=== PATIENT | male | born 1925 | race Caucasian/White ===

== ENCOUNTER → 2016-12-21 | Outpatient (CLI) | payer OTHER, BC ==
[~2016-12-21] VITALS: Ht 177.8 cm; Wt 89.5 kg
[~2016-12-21] MED LIST: ACETAMINOPHEN325 M1 PO; APAP500 PO; APAP650 PO; ASPIRIN81 M2 PO; CRESTOR20 MG PO; FISH OIL 1,2001 EAC4 PO; HYDROCODON-ACE1 EAC7 PO; IBUPROFEN 200200 M1 PO; LISINOPRIL10 MG PO; MULTIVITAMINS1 EAC7 PO; NEURONTIN 300300 M1 PO; NEURONTIN 300M300 M2 PO; NORVASC5 MG PO; PERCOCET 5-3251 EACH PO; PREDNISONE 10 M10 M1 PO; VITAMIN D1000 UNI1 PO; ZESTORETIC 20-1 EAC3 PO
--- NOTE | ~2016-12-21 | HPC ---
[facility] [place] [place] [address] PAIN MANAGEMENT CONSULTATION Name: VU ROJAS Brody Room #: REG JACKIE GrigsbyJoel#: [id number] Admission: 12/21/16 Attend Phys: Lauro Hammonds DO Discharge: Date of : 10/14/[birth year] Report #: [id number] THIS REPORT FOR: //name// CC: Lauro Love MD DATE OF SERVICE: 12/21/2016 REFERRING PHYSICIAN: Teresa Love MD CHIEF COMPLAINT: Low back pain, bilateral upper buttock and posterolateral thigh pain. HISTORY OF PRESENT ILLNESS: As you know, the patient is an 89-year-old male, returning today in followup visit reporting pain of level of 5/10. States the pain begins in the low back into his bilateral buttock and posterolateral thigh. The patient denies injury or trauma that may have led to recurrence of symptoms. He states pain is exacerbated with walking and standing for any length of time, improves with resting and relaxation. As you are aware, the patient has undergone epidural injections in the past, the most recent was a November 23, 2016. At that visit, the patient reported a good efficacy with the epidural injection, noticing 90% improvement in overall pain until just recently. He returns today in followup visit to undergo the next in a series of epidural injections. ALLERGIES: LISINOPRIL. CURRENT MEDICATIONS: Acetaminophen, amlodipine, multivitamin, aspirin. SOCIAL HISTORY: The patient denies tobacco, alcohol or IV or illicit drug use. He is retired, retired years ago, unaccompanied today. PHYSICAL EXAMINATION: VITAL SIGNS: Blood pressure 139/83, pulse 93, respiratory rate 16, unlabored. The patient is 97% on room air. Height 5 feet 10 inches tall, weight 197.4 pounds, BMI calculated 28.3. GENERAL: Well-developed, well-nourished, well-hydrated 89-year-old male appearing stated age, placing current pain score at approximately 5/10. HEENT: Normocephalic, atraumatic. Pupils equal, round, reactive to light. Extraocular muscles are intact. Sclerae nonicteric without injection. NEUROLOGIC: Cranial nerves 2-12 grossly intact. EXTREMITIES: Show no clubbing, no cyanosis, no edema. MUSCULOSKELETAL: Seated straight leg raising negative. Supine straight leg raising is positive. Fabere's test negative. Modified Gaenslen's positive for axial low back pain. There is some palpatory tenderness over the bilateral SI [facility] [address] [place] [address] PAIN MANAGEMENT CONSULTATION Name: VU ROJAS Room #: REG [facility]#: [id number] Admission: 12/21/16 Attend Phys: Lauro Hammonds DO Discharge: Date of : 10/14/[birth year] Report #: [id number] joints today. Deep palpation of the area causes some intensification symptoms. ASSESSMENT: 1. Refer chronic lumbar radiculopathy. 2. Spinal stenosis of lumbar spine. 3. Displacement of lumbar intervertebral disk with radiculopathy. 4. Lumbosacral spondylosis with radiculopathy. 5. Lumbar degeneration. 6. Chronic intractable pain. PLAN: 1. The patient returns today in followup visit reporting pain score 5/10. It appears the patient has been suffering from recurrent lumbar radicular symptoms secondary to his progressively worsening spinal stenosis. We have discussed with the patient the treatment options available. Given the fact that he received 90% improvement in overall pain with previous injection, I would recommend he undergo the next in a series of epidural injections in hopes of improving pain further. The patient was amenable and does wish to undergo the procedure. He was advised the risks and benefits, states he understood, signed a consent and wished to proceed. 2. No medication changes were made at today's visit. The patient to continue current medical therapy as previously prescribed. 3. The patient to return to our clinic on an as needed basis for possible next in a series of epidural injections and discuss other treatment options for lumbar radicular pain secondary to spinal stenosis. PROCEDURE NOTE DESCRIPTION OF PROCEDURE: Lumbar epidural steroid injection under fluoroscopic guidance. After obtaining written consent, the patient was taken back to fluoroscopy suite, placed in prone position with pillow under abdomen to decrease lumbar lordosis. Skin overlying the lumbosacral area prepped and draped in aseptic fashion. Lumbar epidural intervertebral spaces were identified by AP fluoroscopy. Skin and subcutaneous tissue overlying the target site of injection was anesthetized with 3 mL of 1% lidocaine. A 20-gauge 3-1/2 inch Tuohy needle was advanced under fluoroscopic guidance towards the epidural space using a midline approach. Epidural space was identified using loss of resistance to air technique. After negative aspiration for heme or cerebrospinal fluid, 1 mL of Omnipaque was injected. A lumbar epidurogram was confirmed using both AP and lateral fluoroscopy. After negative aspiration for heme or cerebrospinal fluid, 5 mL of a solution containing 2 mL 40 mg per mL, 80 mg total triamcinolone and 3 mL of lidocaine 1% injected slowly. Needle retracted approximately half way, needle tract flushed 3 mL 1% [address] [address] PAIN MANAGEMENT CONSULTATION Name: VU ROJAS Room #: NADEEG Julian#: [id number] Admission: 12/21/16 Attend Phys: Lauro Hammonds DO Discharge: Date of : 10/14/[birth year] Report #: [id number] lidocaine. Needle then removed. Sterile bandage placed over injection site. No new motor deficits present in lower extremity following the procedure. The patient tolerated the procedure well, carefully escorted to the recovery in stable condition. No apparent complications. After meeting discharge criteria, the patient discharged home. <ELECTRONICALLY SIGNED> By: Lauro Hammonds DO 12/28/16 [id number] Lauro Hammonds DO /nt
[2016-12-21 10:13] VITALS: BP 139/83
== END | disposition home or self-care (01) ==
LOC: PAIN 07:23
DX: M51.16 Intervertebral disc disorders with radiculopathy, lumbar region (principal); M48.06 Spinal stenosis, lumbar region; M47.27 Other spondylosis with radiculopathy, lumbosacral region; G89.29 Other chronic pain

== ENCOUNTER → 2017-06-20 | Outpatient (CLI) | payer OTHER, BC ==
[~2017-06-20] VITALS: Ht 177.8 cm; Wt 94.2 kg
[~2017-06-20] MED LIST changes: +TRAMADOL 50 MG50 MG PO
--- NOTE | ~2017-06-20 | HPC ---
[facility] [address] [address] PAIN MANAGEMENT CONSULTATION Name: ROJASVU Room #: REG JACKIE GrigsbyJoel#: [id number] Admission: 06/20/17 Attend Phys: Lauro Hammonds DO Discharge: Date of : 10/14/[birth year] Report #: [id number] THIS REPORT FOR: //name// CC: Lauro Love DATE OF SERVICE: 06/20/2017 REFERRING PHYSICIAN: Teresa Love M.D. CHIEF COMPLAINT: Low back pain, bilateral upper buttock and posterolateral thigh pain. HISTORY OF PRESENT ILLNESS: As you know, the patient is an 89-year-old male who returns today in followup visit with pain level of 5 and 6 over 10. States his pain is dull, aching, numbness and tingling in sensation, exacerbated with walking and standing and improves with sitting, medications and epidural injections. He returns requesting an epidural injection under fluoroscopic guidance as his back pain has become intense enough that he cannot participate in daily activities. He returns requesting this epidural injection in hopes of building on success of previous intervention. He reported upwards of 70% improvement in overall pain with the previous injection. ALLERGIES: LISINOPRIL. CURRENT MEDICATIONS: Tramadol, acetaminophen, amlodipine, aspirin and multivitamins. SOCIAL HISTORY: The patient denies tobacco, alcohol or IV or illicit drug use. He is retired, retired years ago. He is accompanied by his who is present in room today. IMAGING DATA: No new imaging available. PHYSICAL EXAMINATION: VITAL SIGNS: Blood pressure 135/77, pulse 95 and respiratory rate 16 and unlabored. The patient is 98% on room air, height 5 feet 10 inches tall, weight 207.7 pounds and BMI calculated 29.8. GENERAL: Well developed, well nourished, well hydrated, 89-year-old male. He appears his stated age. He is placing pain score today 5 and 6 over 10. HEENT: Normocephalic and atraumatic. Pupils equal, round and reactive to light. Extraocular muscles are intact. Speech is fluent. EXTREMITIES: Show no clubbing, no cyanosis and no edema. MUSCULOSKELETAL: Seated straight leg raising negative. Supine straight leg raising is positive on the right. Fabere's test negative. Modified [facility] [address] [place] [address] PAIN MANAGEMENT CONSULTATION Name: VU ROJAS Room #: REG [facility]#: [id number] Admission: 06/20/17 Attend Phys: Lauro Hammonds DO Discharge: Date of : 10/14/[birth year] Report #: [id number] positive for axial low back pain. Ankle clonus negative. Babinski is negative. Gait is antalgic. Stance is kyphotic and forward flexed with loss of lordotic curvature. ASSESSMENT: 1. Symptomatic lumbar radiculopathy. 2. Spinal stenosis of the lumbar spine. 3. Displacement of lumbar intervertebral disk with radiculopathy. 4. Lumbosacral spondylosis with radiculopathy. 5. Lumbar degeneration. 6. Facet arthropathy of the lumbar spine. 7. Chronic intractable pain. PLAN: 1. The patient returns today in followup visit requesting next in the series of epidural injections. The patient has done very well with previous epidural injections, hopeful to see similar improvement today. The patient denies injury or trauma that may have led to symptom development. He returns today requesting epidural injection in hopes of improving pain and denies any new injury or trauma that may have led to this progression of pain symptoms. He has been advised risks and benefits of the procedure and states he understood and wished to proceed. 2. No medication changes were made at today's visit. The patient is to continue current medical therapy as previously prescribed. 3. The patient to return to our clinic in approximately 31 days. At that time, review the efficacy of today's epidural injection and determine if next in the series of epidural injections would be warranted. PROCEDURE NOTE PROCEDURE: L5-S1 interlaminar epidural steroid injection under fluoroscopic guidance. DESCRIPTION OF PROCEDURE: After obtaining written consent, the patient was taken back to fluoroscopy suite, placed in prone position with pillow under abdomen to decrease lumbar lordosis. Skin overlying lumbosacral area prepped and draped in aseptic fashion. Lumbar intervertebral spaces were identified by AP fluoroscopy. Skin and subcutaneous tissue overlying the target site of injection was anesthetized with 3 mL of 1% lidocaine. A 20-gauge 3-1/2 inch Tuohy needle advanced under fluoroscopic guidance towards the epidural space using a midline approach. Epidural space identified using loss of resistance to air technique. After negative aspiration for heme or cerebrospinal fluid, 1 mL of Omnipaque was injected. Lumbar epidurogram was confirmed using both AP and lateral fluoroscopy. After negative aspiration for heme or cerebrospinal fluid, 5 mL of a solution containing 2 mL 40 mg per mL, 80 [facility] [address] [place] [address] PAIN MANAGEMENT CONSULTATION Name: VU ROJAS Room #: REG JACKIE Julian#: [id number] Admission: 06/20/17 Attend Phys: Lauro Hammonds DO Discharge: Date of : 10/14/[birth year] Report #: [id number] mg total triamcinolone and 3 mL lidocaine 1% injected slowly. Needle retracted jail, needle tract flushed 3 mL 1% lidocaine. Needle then removed. Sterile bandage placed over injection site. No new motor deficits present in lower extremity following the procedure. The patient tolerated procedure well, carefully escorted to the recovery in stable condition. No apparent complications. After meeting discharge criteria, the patient discharged home. By: [id number] Lauro Hammonds DO /nt
[2017-06-20 12:46] VITALS: BP 135/77
== END ==
LOC: PAIN 12:20
DX: M51.16 Intervertebral disc disorders with radiculopathy, lumbar region (principal); M47.26 Other spondylosis with radiculopathy, lumbar region; M48.06 Spinal stenosis, lumbar region; G31.89 Other specified degenerative diseases of nervous system; M12.88 Other specific arthropathies, not elsewhere classified, other specified site; G89.29 Other chronic pain; Z88.8 Allergy status to other drugs, medicaments and biological substances; I10 Essential (primary) hypertension

== ENCOUNTER → 2017-08-16 | Outpatient (CLI) | payer OTHER, BC ==
[~2017-08-16] VITALS: Ht 177.8 cm; Wt 92.7 kg
--- NOTE | ~2017-08-16 | HPC ---
[facility] [place] [address] PAIN MANAGEMENT CONSULTATION Name: VU ROJAS Brody Room #: REG [facility] [id number] Admission: 08/16/17 Attend Phys: Lauro Hammonds DO Discharge: Date of : 10/14/[birth year] Report #: [id number] THIS REPORT FOR: //name// CC: Lauro Love MD DATE OF SERVICE: 08/16/2017 REFERRING PHYSICIAN: Teresa Love MD CHIEF COMPLAINT: Low back pain, bilateral lower extremity pain with paresthesias. HISTORY OF PRESENT ILLNESS: As you know, the patient is a pleasant 89-year-old male returning in followup visit with pain level of 7/10. States pain is located in low back, radiates down both legs. Exacerbated with walking, standing, and improves with sitting and medications and epidural injections. He returns today in followup visit, denying any new injury or new trauma that may have led to progression of symptoms. He states his back pain has returned to a level that he cannot go about his activities of daily living further. He requests epidural injection under fluoroscopic guidance. ALLERGIES: LISINOPRIL. CURRENT MEDICATIONS: Tramadol, acetaminophen, amlodipine, multivitamin, and aspirin. SOCIAL HISTORY: The patient denies tobacco, alcohol, IV or illicit drug use. He is retired, retired years ago. He is unaccompanied at today's visit. IMAGING: No new imaging available. PHYSICAL EXAMINATION: VITAL SIGNS: Blood pressure 141/78, pulse is 83, respiratory rate 16, unlabored. The patient is 96% on room air, height 5 feet 10 inches tall, weight 204.4 pounds, BMI calculated 29.3. GENERAL: Well-developed, well-nourished, well-hydrated 89-year-old male appearing stated age, placing current pain score 7/10. HEENT: Normocephalic and atraumatic. Pupils equal, round, reactive to light. EXTREMITIES: Show no clubbing, no cyanosis, no edema. MUSCULOSKELETAL: Lower extremity strength equal and symmetrical 5/5, intact to light touch from L1 through S2 dermatomes. Seated straight leg raising negative. Supine straight leg raising positive. Fabere's test negative. Modified Gaenslen's positive for axial low back pain. Gait mildly antalgic. [facility] [address] [place] [address] PAIN MANAGEMENT CONSULTATION Name: VU ROJAS Room #: REG [facility]#: [id number] Admission: 08/16/17 Attend Phys: Lauro Hammonds DO Discharge: Date of : 10/14/[birth year] Report #: [id number] ASSESSMENT: 1. Symptomatic lumbar radiculopathy. 2. Spinal stenosis of the lumbar spine. 3. Displacement of lumbar intervertebral disk with radiculopathy. 4. Lumbosacral spondylosis with radiculopathy. 5. Lumbar degeneration. 6. Chronic intractable pain. PLAN: 1. The patient returns today in followup visit requesting to undergo epidural injection under fluoroscopic guidance. He has done very well with previous epidural injections, returning today hoping to see similar improvement. He reports upwards of 70% improvement in overall pain with previous injection that just recently discontinued. He returns requesting this epidural injection in hopes of improving pain. 2. The patient was provided no changes in medical therapy, the patient to continue current medical management as previously prescribed. 3. We will see the patient back in followup visit on an as needed basis for next in the series of epidural injections. PROCEDURE NOTE DESCRIPTION OF PROCEDURE: L5-S1 interlaminar epidural steroid injection under fluoroscopic guidance. After obtaining written consent, the patient was taken back to fluoroscopy suite, placed in prone position with pillow under abdomen to decrease lumbar lordosis. Skin overlying lumbosacral area prepped and draped in aseptic fashion. Lumbar intervertebral spaces were identified by AP fluoroscopy. Skin and subcutaneous tissue overlying the target site of injection was anesthetized with 3 mL of 1% lidocaine. A 20-gauge 3-1/2 inch Tuohy needle advanced under fluoroscopic guidance towards the epidural space using a paramedian approach. Epidural space identified using loss of resistance to air technique. After negative aspiration for heme or cerebrospinal fluid, 1 mL of Omnipaque was injected. Lumbar epidurogram was confirmed using both AP and lateral fluoroscopy. After negative aspiration for heme or cerebrospinal fluid, 5 mL of a solution containing 2 mL 40 mg per mL, 80 mg total triamcinolone, 3 mL lidocaine 1% injected slowly. Needle retracted custodial, needle tract flushed 3 mL 1% lidocaine. Needle then removed. Sterile bandage placed over injection site. No new motor deficits present in the lower extremity following the procedure. The patient tolerated the procedure well, carefully escorted to the recovery in [address] [address] PAIN MANAGEMENT CONSULTATION Name: VU ROJAS Room #: REG JACKIE Julian#: [id number] Admission: 08/16/17 Attend Phys: Lauro Hammonds DO Discharge: Date of : 10/14/27 Report #: [id number] stable condition. No apparent complications. After meeting discharge criteria, the patient discharged home. By: [id number] Lauro Hammonds DO /nt
[2017-08-16 09:02] VITALS: BP 141/78
== END ==
LOC: PAIN 06:55
DX: M51.16 Intervertebral disc disorders with radiculopathy, lumbar region (principal); M47.27 Other spondylosis with radiculopathy, lumbosacral region; M51.36 Other intervertebral disc degeneration, lumbar region; G89.29 Other chronic pain; Z88.8 Allergy status to other drugs, medicaments and biological substances